=== PATIENT | female | born 1980 | race Caucasian/White ===

== ENCOUNTER 2024-01-18 09:52 | Emergency (ER) | payer BC, SELFPAY ==
[2024-01-18 10:04] VITALS: BP 105/75
--- NOTE | 2024-01-18 11:53 | ED.GENMED ---
History of Present Illness
General
Chief Complaint: Fall
Time Seen by Provider: 01/18/24 10:32
Travel History
Have you had any contact with someone who has COVID-19?: No
Do you have any symptoms of coronavirus? Fever > 100 degrees, chills, cough, shortness of breath, sore throat, loss of taste or smell, muscle aches, or headache?: No
History of Present Illness
History of Present Illness:
43-year-old female presents to the emergency department for evaluation of left elbow pain and mid to low back pain after falling down her stairs today. Denies head strike or loss of consciousness. Denies any upper or lower extremity paresthesias
Review of Systems
Review of Systems
Allergies reviewed?: Yes
All Other Systems: ROS reviewed and negative except as documented in HPI and ROS
Phy Exam
Physical Exam
Physical Exam:
GEN: Well appearing, NAD, WDWN
HEENT: Oral mucosa moist, no scleral icterus
Cardiac: Regular rate
Lung: No respiratory distress, no tachypnea
MSK: No gross deformity or injuries. Left elbow range of motion normal, no ecchymosis. Tenderness along the olecranon noted. No spinal deformity noted, no thoracic spine tenderness, positivebony tenderness to the proximal L spine
Skin: Good color, no pallor or jaundice, no rashes
Neuro: AO x3, moves all extremities freely
Psych: Calm, cooperative
Course
Orders/Labs/Results
Orders:
Orders
01/18/24 11:02
CR Elbow - Left Min 3 Views Urgent
Comment:
Reason For Exam: fall
CR Lumbar Spine Comp Min 4 Vw* Urgent
Comment:
Reason For Exam: fall
Vital Signs
Initial and Last Documented VS:
Initial Vital Signs
Temp Pulse Resp BP Pulse Ox
98.0 F 69 16 105/75 98
01/18/24 10:04 01/18/24 10:04 01/18/24 10:04 01/18/24 10:04 01/18/24 10:04
Last Documented Vital Signs
Temp Pulse Resp BP Pulse Ox
98.0 F 69 16 105/75 98
01/18/24 10:04 01/18/24 10:04 01/18/24 10:04 01/18/24 10:04 01/18/24 10:04
MDM/Problems Addressed
MDM/Problems Addressed:
X-rays of the left elbow and lumbar spine independently interpreted by me negative for acute osseous abnormalities, supportive care discussed
*Critical Care Note
Total Time (30-74mins, 75-104mins- exclusive of procedures): Not Applicable
ED Attending Note
-
Portions of this chart may have been created with voice recognition software.� Occasional wrong word or��sound alike� substitutions may have occurred due to the inherent limitations of voice recognition software.
Discharge Plan
Departure
Patient Disposition: Home (Routine Discharge)
Date of Disposition: 01/18/24
Time of Disposition: 11:53
Patient with high blood pressure during this ER visit?: No
Discharge Problem:
Contusion of lower back, Contusion of left elbow
Instructions: Low Back Pain ED
Referrals:
Kalie Giles CRNP [Family Provider] -
Interventions
Interventions:
*General Assessment Last Done: 01/18/24 12:05
*ED COVID-19 Vaccine History Last Done: 01/18/24 10:04
*Nursing Disposition Last Done: 01/18/24 12:05
ED-Musculoskeletal Assessment Last Done: 01/18/24 11:18
ED- Neurological Assessment Last Done: 01/18/24 11:18
Discharge Date and Time
Discharge Date/Time: 01/18/24 12:05
Print Language: BELARUSIAN
== END 2024-01-18 12:05 | disposition home or self-care (01) ==
LOC: EMR 09:52
PROVIDERS: EMERGENCY PHYSICIAN Emergency Medicine; FAMILY PHYSICIAN Nurse Practitioner Adult Health
DX: S30.0XXA Contusion of lower back and pelvis, initial encounter (principal); S50.02XA Contusion of left elbow, initial encounter; W10.9XXA Fall (on) (from) unspecified stairs and steps, initial encounter
CPT/HCPCS: 99283; 72110; 73080

== ENCOUNTER → 2024-09-22 10:50 | Outpatient (REF) | payer OTHER, SELFPAY ==
[2024-09-24 08:47] LABS: Quantiferon Mitogen minus NIL 9.93 IU/mL; Quantiferon NIL 0.07 IU/mL; Quantiferon Plus TB1 minus NIL 0.01 IU/mL (<=0.34); Quantiferon TB Gold Plus Negative (Negative)
== END ==
LOC: OHS 10:50
PROVIDERS: ATTENDING PHYSICIAN Nurse Practitioner Family
DX: Z23 Encounter for immunization (principal)
CPT/HCPCS: 36415; 86480; 86787

== ENCOUNTER → 2025-01-11 09:17 | Outpatient (REF) | payer BC, SELFPAY ==
[2025-01-15 04:37] LABS: HPV, High Risk Not Detected; HPV, High Risk Source Cervical
== END ==
LOC: CPAP 09:17
PROVIDERS: ATTENDING PHYSICIAN Nurse Practitioner Adult Health
DX: Z01.419 Encounter for gynecological examination (general) (routine) without abnormal findings (principal)
CPT/HCPCS: 87624

== ENCOUNTER → 2025-06-09 13:54 | Outpatient (REF) | payer BC, SELFPAY ==
[2025-06-09 14:59] LABS: Hematocrit 41.1 % (37.0-47.0); Hemoglobin 14.0 g/dL (12.0-16.0); Mean Corp Hgb Conc. 34.1 g/dL (33.0-37.0); Mean Corpuscular Volume 89.5 fL (81.0-99.0); Nucleated Red Blood Cells % 0 %; Platelet Count 222 10^3/uL (130-400); Red Cell Dist. Width 12.6 % (11.5-14.5)
[2025-06-09 15:30] LABS: ALT (SGPT) 13 U/L (0-35); AST (SGOT) 21 U/L (14-36); Albumin 4.9 g/dl (3.5-5.0); Alkaline Phosphatase 64 U/L (38-126); Blood Urea Nitrogen 11 mg/dl (7-17); Calcium 10.3 mg/dl (8.4-10.2); Carbon Dioxide 28 mmol/L (22-30); Chloride 103 mmol/L (98-107); Glucose 104 mg/dl (70-99); HDL Cholesterol 94 mg/dl; Iron 175 ug/dl (37-170); LDL Cholesterol, Calculated 103 mg/dl; Potassium 4.8 mmol/L (3.5-5.1); Sodium 136 mmol/L (135-145); Total Protein 7.7 g/dl (6.3-8.2); Very Low Density Lipoprotein 34 mg/dl (0-30); eGFR > 60.00
[2025-06-09 15:39] LABS: Total Iron Binding Capacity 293 ug/dl (265-497)
[2025-06-09 16:04] LABS: Ferritin 13.6 ng/ml (6.24-137)
[2025-06-09 16:19] LABS: Vitamin B12 302 pg/ml (239-931)
== END ==
LOC: REG 13:54
PROVIDERS: ATTENDING PHYSICIAN Nurse Practitioner Adult Health
DX: Z00.00 Encounter for general adult medical examination without abnormal findings (principal); E61.1 Iron deficiency; Z78.9 Other specified health status; Z79.899 Other long term (current) drug therapy; Z13.29 Encounter for screening for other suspected endocrine disorder
CPT/HCPCS: 36415; 80053; 80061; 82607; 82728; 83540; 83550; 84439; 84443; 85025